=== PATIENT | male | born 1960 | race Caucasian/White ===

== ENCOUNTER 2024-07-07 08:37 | Emergency (ER) | payer OTHER ==
[~2024-07-07] VITALS: Ht 190.5 cm; Wt 120.0 kg
--- NOTE | 2024-07-07 08:44 | ECG ---
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
[2024-07-07 09:04] LABS: Basophils # (auto) 0.1 10 ^3/uL (0-0.2); Basophils % (auto) 1.3 % (0.0-2.0); Eosinophils # (auto) 0.2 10 ^3/uL (0-0.8); Hematocrit 44.8 % (41.0-53.0); Lymphocytes # (auto) 1.4 10 ^3/uL (0.4-5.4); Lymphocytes % (auto) 23.5 % (10.0-50.0); Mean Corpuscular Hemoglobin 29.4 pg (28.0-32.0); Mean Corpuscular Hgb Conc. 33.6 g/dL (32.0-36.0); Mean Corpuscular Volume 87.7 fL (80.0-100.0); Monocytes # (auto) 0.6 10 ^3/uL (0-1.3); Monocytes % (auto) 10.4 % (0.0-12.0); Neutrophils # (auto) 3.6 10 ^3/uL (1.6-8.6); Neutrophils % (auto) 61.8 % (37.0-80.0); Platelet Count (auto) 192 10^3/uL (140-450); Red Blood Cells 5.11 10^6/uL (4.5-5.90); Red Cell Distribution Width 14.3 % (11.8-14.3); White Blood Cell 5.8 10^3/uL (4.4-10.8)
[2024-07-07 09:26] LABS: Albumin 4.5 g/dL (3.2-4.8); Alkaline Phosphatase 70 U/L (46-116); Anion Gap 6 (5-15); BUN/Creatinine Ratio 13.8 (10.0-20.0); Blood Urea Nitrogen 17 mg/dL (9-23); Calcium 9.8 mg/dL (8.7-10.4); Carbon Dioxide 27 mmol/L (20-31); Chloride 107 mmol/L (98-107); Glucose 99 mg/dL (74-106); Potassium 4.1 mmol/L (3.5-5.1); Sodium 140 mmol/L (136-145); Total Protein 6.8 g/dL (5.7-8.2)
[2024-07-07] MEDS: ASPirin 325 MG TAB PO ONE (09:26)
[2024-07-07] MEDS: NITROGLYCERIN 2% OINT 1GM PKG TD ONE (09:29)
[2024-07-07 09:30] LABS: Alanine Aminotransferase 60 U/L (7-40); Aspartate Aminotransferase 54 U/L (13-40)
--- NOTE | 2024-07-07 09:33 | DVH ---
CLINICAL INFORMATION: 64 years old, Male; chest pain. TECHNIQUE: Single AP portable chest radiograph was obtained. COMPARISON: None FINDINGS: Lungs: Atelectasis in the left lung base. No focal consolidation. Cardiac: Heart size is within normal limits. Pulmonary vasculature: Unremarkable. Mediastinum/stephanie: Unremarkable. Bones: No acute osseous abnormality identified. Other: No other significant findings. IMPRESSION: No evidence of acute disease in the chest.
[2024-07-07 09:43] LABS: Bilirubin, Total 1.1 mg/dL (0.2-1.0)
--- NOTE | 2024-07-07 09:48 | ED.PDOC ---
HPI Comments 64-year-old male brought in by self complaining of pressure-like central chest pain intermittently for 1-1/2 years, worse today. Patient states the pain is constant today and initially occurred at rest. He denies any shortness breath, URI symptoms, nausea, vomiting, diaphoresis or edema. Patient states he is in the process of being evaluated for the chest pain, has had an echocardiogram, however has not yet seen a ux designer or been prescribed any medications for the chest pain. Chief Complaint: Chest Pain Time Seen by MD: 09:14 Primary Care Provider: NETTA Reviewed Notes: Nurses Notes, Medications, Allergies Allergies: Coded Allergies: NO KNOWN ALLERGIES (Unverified , 07/07/24) Information Source: Patient Mode of Arrival: Ambulatory Severity: Moderate Timing: Came on: Gradually Duration: Since onset Prehospital treatment: None Location: Substernal Radiation: No Radiation Quality: Pressure Onset: At Rest Cardiac Risk Factors: Hyperlipidemia, Diabetes PE Risk Factors: None History of: Similar pain in past Modifying Factors: Nothing Past Medical History PAST MEDICAL HISTORY: GERD, High Lipids Past Medical History (Other): Prediabetes Surgical History (Other): Multiple orthopedic surgeries, hernia repair Family History Family History: Reviewed,noncontributory to illness Social History Smoker: Non-Smoker Alcohol: Denies ETOH Use Drugs: Denies Drug Use Lives In: Home Constitutional: denies: chills, diaphoresis, fatigue, fever, malaise, sweats, weakness, others EENTM: denies: blurred vision, double vision, ear bleeding, ear discharge, ear drainage, ear pain, ear ringing, eye pain, eye redness, hearing loss, mouth pain, mouth swelling, nasal discharge, nose bleeding, nose congestion, nose pain, photophobia, tearing, throat pain, throat swelling, voice changes, others Respiratory: denies: cough, hemoptysis, orthopnea, SOB at rest, shortness of breath, SOB with excertion, stridor, wheezing, others Cardiovascular: reports: chest pain; denies: dizzy spells, diaphoresis, Dyspnea on exertion, edema, irregular heart beat, left arm pain, lightheadedness, palpitations, PND, syncope, others Gastrointestinal: denies: abdomen distended, abdominal pain, blood streaked bowels, constipated, diarrhea, dysphagia, difficulty swallowing, hematemesis, melena, nausea, poor appetite, poor fluid intake, rectal bleeding, rectal pain, vomiting, others Genitourinary: denies: burning, dysuria, flank pain, frequency, hematuria, incontinence, penile discharge, penile sore, pain, testicle pain, testicle swelling, urgency, others Neurological: denies: dizziness, fainting, headache, left sided numbness, left sided weakness, numbness, paresthesia, pre-existing deficit, right sided numbness, right sided weakness, seizure, speech problems, tingling, tremors, weakness, others Musculoskeletal: denies: back pain, gout, joint pain, joint swelling, muscle pain, muscle stiffness, neck pain, others Integumetry: denies: bruises, change in color, change in hair/nails, dryness, laceration, lesions, lumps, rash, wounds, others Allergic/Immunocompromised: denies: Difficulty Healing, Frequent Infections, Hives, Itching, others Hematologic/Lymphatic: denies: anemia, blood clots, easy bleeding, easy bruising, swollen glands, others Endocrine: denies: excessive hunger, excessive sweating, excessive thirst, excessive urination, flushing, intolerance to cold, intolerance to heat, une xplained weight gain, unexplained weight loss, others Psychiatric: denies: anxiety, bipolar disorder, depression, hopeless, panic disorder, schizophrenia, sleepless, suicidal, others All Other Systems: Reviewed and Negative (Comprehensive systems review obtained and negative except for what is stated in the HPI.) Physical Exam General Appearance: No Apparent Distress, Obese HEENT: Normal ENT Inspection Neck: Full Range of Motion, Normal Inspection Respiratory: Lungs Clear, No Accessory Muscle Use, No Respiratory Distress, Normal Breath Sounds Cardiovascular: No Edema, No JVD, Regular Rate/Rhythm Breast Exam: Deferred Gastrointestinal: Non Tender, Soft Genitalia: Deferred Pelvic: Deferred Rectal: Deferred Extremities: Normal inspection, Normal range of motion, Non-tender, No pedal edema Neurologic: Alert (Oriented x4), Normal Affect, Normal Mood, Other (Ambulatory without difficulty. No gross focal deficit.) Cerebellar Function: NOT DONE Reflexes: NOT DONE Skin: Dry, Normal Color, Warm Lymphatic: NOT DONE EKG EKG #1: Comments Sinus rhythm, rate 58, normal intervals, left axis deviation, baseline wander, no definite ST/T changes. EKG #2: Comments Sinus rhythm, rate 54, normal intervals, left axis, nonspecific T change. No significant change from EKG 1. Was a procedure done? Was a procedure done?: No CP Differential Dx Differential Diagnosis: Angina, Anxiety / Panic Attack, Heart Failure, UT, Pulmonary Embolus Differential Diagnosis: Aortic dissection, Chest Wall Pain, Esophageal reflux/spasm, Gastritis, Pericarditis, Pneumonia X-Ray, Labs, Meds, VS Vital Signs Date Time Temp Pulse Resp B/P (MAP) Pulse Ox O2 Delivery O2 Flow Rate FiO2 07/07/24 10:22 138/86 07/07/24 09:41 54 07/07/24 09:29 133/85 07/07/24 09:05 98.5 58 18 133/82 (99) 100 98.5 07/07/24 09:05 58 07/07/24 08:42 58 07/07/24 08:40 97.5 60 20 153/85 (107) 100 Lab Test 07/07/24 09:50 07/07/24 08:47 Range/Units Troponin I High Sensitivity 17 17 </=54 ng/L B-Type Natriuretic Peptide 19.12 0-100 pg/mL White Blood Count 5.8 4.4-10.8 10^3/uL Red Blood Count 5.11 4.5-5.90 10^6/uL Hemoglobin 15.0 13.5-17.5 g/dL Hematocrit 44.8 41.0-53.0 % Mean Corpuscular Volume 87.7 80.0-100.0 fL Mean Corpuscular Hemoglobin 29.4 28.0-32.0 pg Mean Corpuscular Hemoglobin Concent 33.6 32.0-36.0 g/dL Red Cell Distribution Width 14.3 11.8-14.3 % Platelet Count 192 140-450 10^3/uL Mean Platelet Volume 8.7 6.9-10.8 fL Neutrophils (%) (Auto) 61.8 37.0-80.0 % Lymphocytes (%) (Auto) 23.5 10.0-50.0 % Monocytes (%) (Auto) 10.4 0.0-12.0 % Eosinophils (%) (Auto) 3.0 0.0-7.0 % Basophils (%) (Auto) 1.3 0.0-2.0 % Neutrophils # (Auto) 3.6 1.6-8.6 10 ^3/uL Lymphocytes # (Auto) 1.4 0.4-5.4 10 ^3/uL Monocytes # (Auto) 0.6 0-1.3 10 ^3/uL Eosinophils # (Auto) 0.2 0-0.8 10 ^3/uL Basophils # (Auto) 0.1 0-0.2 10 ^3/uL Nucleated Red Blood Cells 0.0 % Urine Color Light-yellow Yellow Urine Clarity Clear Clear Urine pH 7.5 5.0-9.0 Urine Specific [place] 1.015 1.001-1.035 Urine Protein Negative Negative Urine Ketones Negative Negative Urine Blood Negative Negative /uL Urine Nitrite Negative Negative Urine Bilirubin Negative Negative Urine Urobilinogen Normal Negative mg/dL Urine Leukocyte Esterase Negative Negative /uL Urine RBC None seen 0 - 3 /hpf Urine WBC 1 0 - 3 /hpf Urine Squamous Epithelial Cells Few <5 /hpf Urine Bacteria Few H None Seen /hpf Urine Glucose Normal Normal mg/dL Sodium Level 140 136-145 mmol/L Potassium Level 4.1 3.5-5.1 mmol/L Chloride Level 107 98-107 mmol/L Carbon Dioxide Level 27 20-31 mmol/L Anion Gap 6 5-15 Blood Urea Nitrogen 17 9-23 mg/dL Creatinine 1.23 0.700-1.30 mg/dL Glomerular Filtration Rate Calc 66 >90 mL/min BUN/Creatinine Ratio 13.8 10.0-20.0 Serum Glucose 99 74-106 mg/dL Calcium Level 9.8 8.7-10.4 mg/dL Total Bilirubin 1.1 H 0.2-1.0 mg/dL Aspartate Amino Transferase (AST) 54 H 13-40 U/L Alanine Aminotransferase (ALT) 60 H 7-40 U/L Alkaline Phosphatase 70 46-116 U/L Total Protein 6.8 5.7-8.2 g/dL Albumin 4.5 3.2-4.8 g/dL Current Medications Medications (Trade) Dose Ordered Sig/Samira Route Start Time Stop Time Status Last Admin Aspirin 325 mg ONCE ONCE PO 07/07/24 09:30 07/07/24 09:31 DC 07/07/24 09:26 Nitroglycerin (Nitro-Bid) 1 pkg ONCE ONCE TD 07/07/24 09:30 07/07/24 09:31 DC 07/07/24 09:29 PROCEDURE(s): CXRP - CHEST PORTABLE REASON: CP ORDER NUMBER(s): [id number], ACCESSION NUMBER(s): [id number] CLINICAL INFORMATION: 64 years old, Male; chest pain. TECHNIQUE: Single AP portable chest radiograph was obtained. COMPARISON: None FINDINGS: Lungs: Atelectasis in the left lung base. No focal consolidation. Cardiac: Heart size is within normal limits. Pulmonary vasculature: Unremarkable. Mediastinum/stephanie: Unremarkable. Bones: No acute osseous abnormality identified. Other: No other significant findings. IMPRESSION: No evidence of acute disease in the chest. X-Ray, Labs, Meds, VS Comment 64-year-old male with a history of prediabetes, dyslipidemia and GERD presenting complaining of chest pain Vitals remarkable for BP 153/85 Exam unremarkable Rhythm strip independently interpreted by me: Sinus rhythm, rate 58, no ectopy. EKG sinus rhythm, nonspecific changes Chest x-ray unremarkable CBC, basic metabolic panel, BNP and 1st troponin unremarkable for any abnormality of acute significance Patient treated with the following in the ED: Aspirin 325 mg p.o., Nitro-Bid 1/2 inch applied to chest wall. On re-evaluation, patient states pain has resolved. Vitals are stable. Plan is to admit/transfer the patient for Cardiology evaluation Case discussed with Netta JACKSON RP. Will arrange for transfer. Authorization [id number] Time of 1ST Reevaluation: 10:38 Reevaluation 1ST: Improved Patient Education/Counseling: Diagnosis, Treatment, Prognosis Family Education/Counseling: No Family Present Departure 1 Departure Time of Disposition: 10:38 Impression: Primary Impression: Chest pain with high risk of acute coronary syndrome Disposition: 02 SHORT TERM HOSPITAL Admit to: Tele Condition: Guarded Critical Care Note Critical Care Time?: No Stability Stability form required: No Heart Score Heart Score: Heart Score Response (Comments) Value History Highly Suspicious 2 EKG Repolarization Disturb 1 Age 45-64 1 Risk Factors >3 or Hx ASHD 2 Troponin Normal limit 0 Total 6 I personally scribed for SONY KURTZ MD ([email or web address]) on 07/07/24 at 09:48. Electronically submitted by Megan Ramirez ([facility]). I personally scribed for SONY KURTZ MD ([email or web address]) on 07/07/24 at 10:46. Electronically submitted by Megan Ramirez ([facility]). SONY KURTZ MD Jul 07, 2024 09:48
[2024-07-07] MEDS: DONNATAL 5ml ORAL Elix (BELLADONNA ALK-PHENOBARB) PO ONE (10:17)
[2024-07-07] MEDS: MAALOX PLUS or MAALOX 30 ML PO ONE (10:17)
[2024-07-07] MEDS: LIDOCAINE VISCOUS 2% 15ML UD PO ONE (10:17)
[2024-07-07 10:20] LABS: Urine Bacteria FEW /hpf (None Seen); Urine Blood Negative /uL (Negative); Urine Clarity Clear (Clear); Urine Color Light-Yellow (Yellow); Urine Protein, UAD Negative (Negative); Urine Specific Gravity 1.015 (1.001-1.035); Urine Urobilinogen Normal (Negative); Urine WBC 1 /hpf (0 - 3); Urine pH 7.5 (5.0-9.0)
[2024-07-07 11:20] VITALS: PULSE 58; RESP 18; O2SAT 96
[2024-07-07 13:09] VITALS: BP 134/76; PULSE 56; RESP 12; TEMP 97.5; O2SAT 96
== END 2024-07-07 13:22 | disposition short-term general hospital (02) ==
LOC: ER 08:37
DX: R07.89 Other chest pain (principal); E78.5 Hyperlipidemia, unspecified; K21.9 Gastro-esophageal reflux disease without esophagitis; R06.02 Shortness of breath; Z98.890 Other specified postprocedural states
CPT/HCPCS: 36415; 71045; 80053; 81001; 83880; 84484; 85025; 93005